=== PATIENT | female | born 1975 | race Caucasian/White ===

== ENCOUNTER 2019-02-12 18:50 | Emergency (ER) | payer MEDICAID, OTHER ==
--- NOTE | 2019-02-12 19:06 | Emergency Department Record ---
History of Present Illness - General Chief complaint: Dental Stated complaint: R FACIAL SWELLING Time Seen by Provider: 02/12/19 19:02 Source: Patient Mode of Arrival: Ambulatory Limitations: No limitations - History of Present Illness Initial comments: 43 yo female presents to ED for evaluation of right sided dental pain symptoms that began 3 days ago, facial swelling overlying the dental pain area that began this afternoon. Patient reports the facial swelling is what prompted her to come to the ED for evaluation. Patient denies fevers, chills, change in vision, or eye pain symptoms. Patient denies having a regular dentist that she sees as well. MD complaint: Tooth pain Onset/Timin -: Days(s) Severity: Severe Severity scale (1-10): 10 Quality: Aching Consistency: Constant, Getting worse Improves with: None Context- Dental: History of dental caries Associated Symptoms: Fever - Related Data Previous Rx's Medication Instructions Recorded Penicillin V Potassium 500 mg PO QID #28 tablet 02/12/19 Allergies Allergy/AdvReac Type Severity Reaction Status Date / Time No Known Drug Allergies Allergy Unverified 08/20/16 16:12 Travel Screening - Travel/Exposure Within Last 30 Days Have you traveled within the last 30 days?: No Review of Systems Constitutional: Denies: Chills, Fever, Malaise, Night sweats Eyes: Denies: Eye discharge, Eye pain ENT: Reports: Dental pain. Denies: Congestion, Ear pain Respiratory: Denies: Cough, Dyspnea Cardiovascular: Denies: Chest pain, Dyspnea on exertion Endocrine: Denies: Fatigue, Heat or cold intolerance Gastrointestinal: Denies: Abdominal pain, Nausea, Vomiting Genitourinary: Denies: Incontinence, Retention Musculoskeletal: Denies: Arthralgia, Back pain, Gout, Joint swelling Skin: Denies: Bruising, Change in color Neurological: Denies: Abnormal gait, Confusion, Headache, Tingling, Tremors Psychiatric: Denies: Anxiety Hematological/Lymphatic: Denies: Anemia, Blood Clots Past Medical History - SOCIAL HISTORY Smoking Status: Current some day smoker Alcohol Use: None Drug Use: None - RESPIRATORY Hx Respiratory Disorders: No - CARDIOVASCULAR Hx Cardio Disorders: No - NEURO Hx Neuro Disorders: No - GI Hx GI Disorders: No - Hx Genitourinary Disorders: No - ENDOCRINE Hx Endocrine Disorders: No - MUSCULOSKELETAL Hx Musculoskeletal Disorders: No - PSYCH Hx Psych Problems: No - HEMATOLOGY/ONCOLOGY Hx Hematology/Oncology Disorders: No Family Medical History Any Significant Family History?: Yes Hx Heart Disease: Grandparents Hx HTN: Grandparents Physical Exam - General General Appearance: Alert, Oriented x3, Cooperative, Mild distress Limitations: No limitations - Head Head exam: Atraumatic, Normocephalic, Normal inspection Head exam detail: negative: Abrasion, Contusion, Bhagat's sign, General tenderness, Hematoma, Laceration - Eye Eye exam: Normal appearance. negative: Conjunctival injection, Periorbital swelling, Periorbital tenderness, Scleral icterus - ENT Ear exam: negative: Auricular hematoma, Auricular trauma Nasal Exam: negative: Active bleeding, Discharge, Dried blood, Foreign body Mouth exam: negative: Drooling, Laceration, Tongue elevation Teeth exam: Dental caries, Dental tenderness #. negative: Fractured tooth # Image of Mouth/Teeth: 1 - Dental caries present, no gingival abscess is present on examination - Neck Neck exam: Normal inspection. negative: Meningismus, Tenderness - Respiratory Respiratory exam: Normal lung sounds bilaterally. negative: Respiratory distress, Rhonchi, Stridor, Wheezes - Cardiovascular Cardiovascular Exam: Regular rate, Normal rhythm, Normal heart sounds - GI/Abdominal GI/Abdominal exam: Soft. negative: Distended, Rebound, Rigid, Tenderness - Rectal Rectal exam: Deferred - exam: Deferred - Extremities Extremities exam: Normal inspection. negative: Pedal edema, Tenderness - Back Back exam: Denies: CVA tenderness (R), CVA tenderness (L) - Neurological Neurological exam: Alert, Normal gait, Oriented X3 - Psychiatric Psychiatric exam: Normal affect, Normal mood - Skin Skin exam: Normal color. negative: Abrasion Type of lesion: negative: abrasion Course Vital Signs 02/12/19 18:57 Temperature 98.9 F Pulse Rate 82 Respiratory 22 Rate Blood Pressure 189/95 Pulse Ox 99 - Reevaluation(s) Reevaluation #1: 02/12/19 19:10 Examination appears c/w dental caries, no gingival abscess is present on examination. Will initiate treatment with Pen VK, referral for dentists in the area was given as well. Patient appears comfortable on examination, pain appears controlled, and patient appears stable for discharge at this time. Disposition Disposition: Discharge Clinical Impression: Dental caries Disposition: Home, Self-Care Condition: (2) Stable Instructions: Dental Abscess (ED) Additional Instructions: Return to the ED if your symptoms worsen or if you have any concerns. Contact a dentist from the referral sheet given for dental evaluation in 3-5 days. Penicillin VK as directed. Prescriptions: Penicillin V Potassium 500 mg PO QID #28 tablet Forms: Patient Portal Access Time of Disposition: 19:06 Quality - Quality Measures Quality Measures: N/A - Blood Pressure Screening Does Patient Have Any of the Following: No Blood Pressure Classification: Hypertensive Reading Systolic Measurement: 189 Diastolic Measurement: 95 Screening for High Blood Pressure: < First Hypertensive BP, F/U Documented > [ G8950] First Hypertensive Follow-up Interventions: Referral to alternative/primary care provider.
== END 2019-02-12 19:13 | disposition home or self-care (01) ==
LOC: ER 18:50
DX: K02.9 Dental caries, unspecified (principal); F17.210 Nicotine dependence, cigarettes, uncomplicated
CPT/HCPCS: 99282

== ENCOUNTER 2019-02-13 14:33 | Emergency (ER) | payer OTHER ==
[2019-02-13] MEDS ORDERED: AMPICILLIN SODIUM/SULBACTAM NA 3 G in 0.9 % SODIUM CHLORIDE 100ML 100 ML IVPB ONE (14:56)
[2019-02-13 15:54] LABS: BASO % 0.2 % (0-6); GRAN % 72.9 % (47-80); HEMATOCRIT 43.4 % (35.0-47.0); HEMOGLOBIN 14.2 gm/dl (11.6-16.0); LYMPH % 16.9 % (16-45); MEAN CELL VOLUME 87.5 fl (81-97); MEAN CORPUSCULAR HEMOGLOBIN 28.6 pg (27-33); MEAN CORPUSCULAR HGB CONC 32.7 g/dl (32-36); MEAN PLATELET VOLUME 10.1 fl (7.4-10.4); PLATELET COUNT 241 K/uL (130-400); RED BLOOD COUNT 4.96 M/uL (3.80-5.40); RED CELL DISTRIBUTION WIDTH 14.2 % (11.5-14.5); WHITE BLOOD COUNT W/O DIFF 9.9 K/uL (4.2-12.2)
--- NOTE | 2019-02-13 16:08 | Emergency Department Record ---
History of Present Illness - General Chief complaint: Dental Stated complaint: FACIAL SWELLING AND PAIN Time Seen by Provider: 02/13/19 14:48 Source: Patient Mode of Arrival: Ambulatory Limitations: No limitations - History of Present Illness Initial comments: pt had a filling fall out and was seen yesterday and was started on abx. today her face has swelling in her cheek. she has an appt w a dentist in 2 days MD complaint: Tooth pain Onset/Timin -: Days(s) Location: Tooth # Severity: Moderate Severity scale (1-10): 8 Context- Dental: History of dental caries Associated Symptoms: Toothache - Related Data Previous Rx's Medication Instructions Recorded Amoxicillin/Potassium Clav 1 each PO BID #14 tablet 02/13/19 [Augmentin 875Mg/125Mg] Allergies Allergy/AdvReac Type Severity Reaction Status Date / Time No Known Drug Allergies Allergy Verified 02/13/19 14:39 Travel Screening - Travel/Exposure Within Last 30 Days Have you traveled within the last 30 days?: No - Travel/Exposure Within Last Year Have you traveled outside the [place] in the last year?: No - Additonal Travel Details Have you been exposed to anyone with a communicable illness?: No - Travel Symptoms Symptom Screening: None Review of Systems Reviewed: No additional complaints except as noted below Constitutional: Reports: As per HPI. Denies: Chills, Fever, Malaise, Night sweats, Weakness, Weight change Eyes: Reports: As per HPI. Denies: Eye discharge, Eye pain, Photophobia, Vision change ENT: Reports: As per HPI, Dental pain. Denies: Congestion, Ear pain, Epistaxis , Hearing loss, Throat pain Respiratory: Reports: As per HPI. Denies: Cough, Dyspnea, Hemoptysis, Stridor, Wheezes Cardiovascular: Reports: As per HPI. Denies: Arrhythmia, Chest pain, Dyspnea on exertion, Edema, Murmurs, Orthopnea, Palpitations, Paroxysmal nocturnal dyspnea, Rheumatic Fever, Syncope Endocrine: Reports: As per HPI. Denies: Fatigue, Heat or cold intolerance, Polydipsia, Polyuria Gastrointestinal: Reports: As per HPI. Denies: Abdominal pain, Constipation, Diarrhea, Hematemesis, Hematochezia, Melena, Nausea, Vomiting Genitourinary: Reports: As per HPI. Denies: Abnormal menses, Discharge, Dyspareunia, Dysuria, Frequency, Hematuria, Incontinence, Retention, Urgency Musculoskeletal: Reports: As per HPI. Denies: Arthralgia, Back pain, Gout, Joint swelling, Myalgia, Neck pain Skin: Reports: As per HPI. Denies: Bruising, Change in color, Change in hair/ nails, Lesions, Pruritus, Rash Neurological: Reports: As per HPI. Denies: Abnormal gait, Confusion, Headache, Numbness, Paresthesias, Seizure, Tingling, Tremors, Vertigo, Weakness Psychiatric: Reports: As per HPI. Denies: Anxiety, Auditory hallucinations, Depression, Homicidal thoughts, Suicidal thoughts, Visual hallucinations Hematological/Lymphatic: Reports: As per HPI. Denies: Anemia, Blood Clots, Easy bleeding, Easy bruising, Swollen glands Past Medical History - SOCIAL HISTORY Smoking Status: Current some day smoker Alcohol Use: None Drug Use: None - RESPIRATORY Hx Respiratory Disorders: No - CARDIOVASCULAR Hx Cardio Disorders: No - NEURO Hx Neuro Disorders: No - GI Hx GI Disorders: No - Hx Genitourinary Disorders: No - ENDOCRINE Hx Endocrine Disorders: No - MUSCULOSKELETAL Hx Musculoskeletal Disorders: No - PSYCH Hx Psych Problems: No - HEMATOLOGY/ONCOLOGY Hx Hematology/Oncology Disorders: No Family Medical History Any Significant Family History?: Yes Hx Heart Disease: Grandparents Hx HTN: Grandparents Physical Exam - General General Appearance: Alert, Oriented x3, Cooperative, Mild distress - Head Head exam: Normal inspection Image of Face/Head: 1 - swelling, erythema, tenderness - Eye Eye exam: Normal appearance, PERRL Pupils: Normal accommodation - ENT ENT exam: Normal exam, Mucous membranes moist, Normal external ear exam, Normal orophraynx Ear exam: Normal external inspection. negative: External canal tenderness Nasal Exam: Normal inspection. negative: Discharge, Sinus tenderness Mouth exam: Normal external inspection, Tongue normal Teeth exam: Normal inspection. negative: Dental caries Throat exam: Normal inspection. negative: Tonsillar erythema, Tonsillar exudate - Neck Neck exam: Normal inspection, Full ROM. negative: Tenderness - Respiratory Respiratory exam: Normal lung sounds bilaterally. negative: Respiratory distress - Cardiovascular Cardiovascular Exam: Regular rate, Normal rhythm, Normal heart sounds - GI/Abdominal GI/Abdominal exam: Soft, Normal bowel sounds. negative: Tenderness - Rectal Rectal exam: Deferred - exam: Deferred - Extremities Extremities exam: Normal inspection, Full ROM, Normal capillary refill. negative: Tenderness - Back Back exam: Reports: Normal inspection, Full ROM. Denies: Muscle spasm, Rash noted, Tenderness - Neurological Neurological exam: Alert, CN II-XII intact, Normal gait, Oriented X3 - Psychiatric Psychiatric exam: Normal affect, Normal mood - Skin Skin exam: Dry, Intact, Normal color, Warm Course Vital Signs 02/13/19 14:40 Temperature 99 F Pulse Rate 100 H Respiratory 20 Rate Blood Pressure 124/80 Pulse Ox 97 Medical Decision Making - Lab Data Result diagrams: 02/13/19 15:25 Lab Results 02/13/19 Range/Units 15:25 WBC 9.9 (4.2-12.2) K/uL RBC 4.96 (3.80-5.40) M/uL Hgb 14.2 (11.6-16.0) gm/dl Hct 43.4 (35.0-47.0) % MCV 87.5 (81-97) fl MCH 28.6 (27-33) pg MCHC 32.7 (32-36) g/dl RDW 14.2 (11.5-14.5) % Plt Count 241 (130-400) K/uL MPV 10.1 (7.4-10.4) fl Gran % 72.9 (47-80) % Lymphocytes % 16.9 (16-45) % Monocytes % 9.0 (0-9) % Eosinophils % 1.0 (0-6) % Basophils % 0.2 (0-6) % Disposition Disposition: Discharge Clinical Impression: Dental abscess Disposition: Home, Self-Care Condition: (1) Good Instructions: Dental Abscess (ED) Additional Instructions: follow akil with a dentist. return sooner if worse. sleepelevated. use moist heat. stop current prescription and start new one Prescriptions: Amoxicillin/Potassium Clav [Augmentin 875Mg/125Mg] 1 each PO BID #14 tablet Quality - Quality Measures Quality Measures: N/A - Blood Pressure Screening Does Patient Have Any of the Following: No Blood Pressure Classification: Pre-Hypertensive BP Reading Systolic Measurement: 124 Diastolic Measurement: 80 Screening for High Blood Pressure: < Pre-Hypertensive BP, F/U Documented > [ G8950] Pre-Hypertensive Follow-up Interventions: Follow-up with rescreen every year.
== END 2019-02-13 16:23 | disposition home or self-care (01) ==
LOC: ER 14:33
DX: K04.7 Periapical abscess without sinus (principal); F17.210 Nicotine dependence, cigarettes, uncomplicated
CPT/HCPCS: 85025; 96365; 99284; J0295